=== PATIENT | male | born 1990 | race Caucasian/White ===

== ENCOUNTER → 2016-08-16 | Outpatient (CLI) | payer OTHER ==
--- NOTE | 2016-08-16 18:10 | DX ---
Cervical spine, 2 views History: Follow up fusion. Comparison: Cervical spine of March 29, 2016. Findings: Alignment is normal. ACDF is again noted at C5-C6. On the lateral, screw heads at both C5 and C6 appear to have withdrawn slightly relative to the plate compared to the previous study. One of the C6 screws is fractured, best visualized on the lateral view, most likely the right. There is no significant lucency associated with the screws to suggest loosening. Mild vertebral and uncovertebral spondylosis at C3 through C5 is stable. No fracture is identified. Impression: Interval fracture of a C6 screw, likely the right screw, with minimal withdrawal of the screw heads at C5 and C6 relative to the plate since the comparison.
== END ==
LOC: FIMAGING 17:31
PROVIDERS: ATTEND Orthopaedic Surgery Orthopaedic Surgery of the Spine
DX: Z09 Encounter for follow-up examination after completed treatment for conditions other than malignant neoplasm (principal); Z98.1 Arthrodesis status; M96.1 Postlaminectomy syndrome, not elsewhere classified

== ENCOUNTER → 2016-10-24 | Outpatient (CLI) | payer OTHER | LOC: FIMAGING 20:19 | PROVIDERS: ATTEND Orthopaedic Surgery Orthopaedic Surgery of the Spine | DX: Z09 Encounter for follow-up examination after completed treatment for conditions other than malignant neoplasm (principal); Z98.1 Arthrodesis status ==

== ENCOUNTER 2017-01-31 06:03 | Inpatient (IN) | payer OTHER ==
--- NOTE | 2017-01-30 18:29 | GHP ---
[f rep st] PREOP HISTORY AND PHYSICAL DATE OF ADMISSION: 01/31/2017 HISTORY: Patient is a 27-year-old, right-hand dominant gentleman well known to my practice. He is 11 months status post a C5-6 anterior diskectomy, fusion with instrumentation by myself for a right- sided disc herniation and right C6 radiculopathy. Unfortunately, the patient has gone on to a nonun ion at the C5-6 level. He initially was doing well after his surgery with about 90% improvement of symptoms. He has had some falls postoperatively. His improvement postoperatively gradually decreas ed. At 10 months, he was 50% better than before surgery but worsening, and now his pain is constant , 24 hours per day. He feels that the surgery is not giving him any improvement as his pain is actu ally somewhat worse. He complains of daily posterior cervical pain, right hand numbness and waking up at night. He also has recurrent headaches. The patient has had a second opinion. He does have a known right C6 anterior screw fracture. The patient denies any loss of bowel or bladder control and no loss of balance. SOCIAL HISTORY: Negative for tobacco. Negative for alcohol. Patient is a student. FAMILY HISTORY: Significant for Scheuermann disease and degenerative disc disease. PAST MEDICAL HISTORY: Bipolar disorder, attention deficit disorder, insomnia, left ulnar nerve pals y, and asthma. PAST SURGICAL HISTORY: Left ulnar nerve transposition at the elbow and two left ulnar nerve surgeri es at the wrist. He is also status post a C5-6 anterior diskectomy, fusion and instrumentation by m yself. MEDICATIONS: Adderall, Seroquel and Minipress. The patient states that with the help of his psychiatrist, he has gotten off Lamictal. PHYSICAL EXAM: GENERAL: Patient is alert and oriented x3. CARDIAC: Regular rate and rhythm witho ut detectable murmur, rub or gallop. LUNGS: Clear to auscultation. He does not have any wheezing or rhonchi. NEUROLOGIC: Cervical range of motion is markedly diminished in all 4 directions. He h as increased pain with extension. Strength of bilateral upper extremities is 5/5 throughout, with t he exception his left hand intrinsics are significantly weak due to the prior ulnar nerve injuries a nd surgery. Light touch is diminished in the right radial forearm, thumb and index finger. Spurlin g test is positive on the left. RADIOGRAPHIC STUDIES: Plain films show a broken C6 screw. There were no radial lucencies. The PEE K cages appear intact but are not incorporated. A CT scan showed a delayed union versus a nonunion. An MRI showed no degenerative disc disease or herniation above or below the prior surgery. IMPRESSION: 1. Eleven months status post C5-6 anterior diskectomy, fusion with instrumentation, for right-sided disc herniation. 2. 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 PLAN: Koko has considered all of his options and is electing to undergo surgery. Given there is no t much bone left anteriorly to remove the instrumentation and then just attempt a refusion at that l evel, one would have to go above and/or below to obtain good bone purchase. Therefore, I think it i s in his best interest to do a posterior fusion with instrumentation C5-6, using local autogenous jaguar ne graft and allogeneic bone. The patient is in agreement. Postoperatively, he will use a hard cer vical collar for approximately 6 weeks. Potential risks, benefits, and possible complications have been discussed with the patient including, but not limited to, deep dural tear with CSF leak, mening itis, nerve root injury, paralysis, partial or complete; drop arm, nonunion, junctional breakdown, n eed for further surgery; breakage or pullout of internal fixation, DVT, PE, pneumonia, stroke, heart attack, hemorrhage, blindness, and . The patient will be n.p.o. after midnight tonight. /[id number]/MODL
[~2017-01-31 06:03] MED LIST: ceFAZolin 2 GM/DEXTROSE 100 ML IV ONE
[2017-01-31] MEDS ORDERED: LR 1,000 ML IV ONE (06:12)
[2017-01-31] MEDS ORDERED: LIDOCAINE 1% 2 ML INJ ID PRN (06:12)
[2017-01-31] MEDS ORDERED: LIDOCAINE 1% 2 ML INJ ONE (06:16)
[2017-01-31] MEDS ORDERED: CITRATE DEXTROSE SOLN 500 ML BAG ONE ×2 (06:38→08:30)
[2017-01-31] MEDS ORDERED: THROMBIN (BOVINE) 20,000 UNIT VIAL TP ONE (06:38)
[2017-01-31] MEDS ORDERED: BUPIVACAINE 0.25% 30 ML SDV ONE (06:38)
[2017-01-31] MEDS ORDERED: BUPIVACAINE/EPI 0.25% 30 ML SDV ONE (06:38)
[2017-01-31] MEDS ORDERED: BACITRACIN 50,000 UNITS/10 ML SYR IRR ONE (06:39)
--- NOTE | 2017-01-31 06:54 | PDANEPAE ---
ANE History of Present Illness 27 year old male with failed fusion. ANE Past Medical History Past Medical History: No ER visits for RAD. No recent inhaler use.RAD triggered by URI. - Cardiovascular History Hx Hypertension: No Hx Arrhythmias: No Hx Chest Pain: No Hx Coronary Artery / Peripheral Vascular Disease: No Hx CHF / Valvular Disease: No Hx Palpitations: No - Pulmonary History Hx COPD: No Hx Asthma/Reactive Airway Disease: Yes Hx Recent Upper Respiratory Infection: No Hx Oxygen in Use at Home: No - Neurologic History Hx Cerebrovascular Accident: No Hx Seizures: No Hx Dementia: No - Endocrine History Hx Diabetes: No - Renal History Hx Renal Disorders: No - Liver History Hx Hepatic Disorders: No - Neurological & Psychiatric Hx Hx Neurological and Psychiatric Disorders: Yes - Cancer History Hx Cancer: No - Congenital Disorder History Hx Congenital Disorders: No - GI History Hx Gastrointestinal Disorders: No - Chronic Pain History Chronic Pain: Yes (CERVICAL) ANE Review of Systems Review of Systems: No URI x2 weeks. - Exercise capacity METS (RN): 4 METS - Systems Cardiac: Reports: no symptoms Respiratory: Reports: no symptoms ANE Patient History - Allergies Allergies/Adverse Reactions: acetaminophen [From Percocet] Allergy (Verified 03/02/16 14:26) Vomiting hydrocodone bitartrate [From Vicodin] Allergy (Verified 03/02/16 14:26) Vomiting hydromorphone Allergy (Verified 03/02/16 14:26) Hives oxycodone HCl [From Percocet] Allergy (Verified 03/02/16 14:26) Vomiting - Home Medications Home Medications: Dextroamphetamine/Amphetamine [Adderall 30 mg Tablet] 30 mg PO DAILY16 03/02/16 [Last Taken 01/30/17] Dextroamphetamine/Amphetamine [Adderall Xr 30 mg Capsule] 30 mg PO DAILY [Last Taken 01/30/17] Diazepam [Valium 5 MG (*)] 5 mg PO BID 03/02/16 [Last Taken 01/30/17] Montelukast Sodium [Singulair 10 mg (*)] 10 mg PO DAILY 03/02/16 [Last Taken ] QUEtiapine FUMARATE [Seroquel 100 mg (*)] 150 mg PO HS 03/02/16 [Last Taken ] Minipress HS 01/26/17 [Last Taken 01/30/17] - NPO status NPO Since - Liquids (Date): 01/31/17 NPO Since - Liquids (Time): 02:00 NPO Since - Solids (Date): 01/30/17 NPO Since - Solids (Time): 23:00 - Anes Hx Anes Hx: no prior problems - Smoking Hx Smoking Status: Former smoker (quit more than 1 year ago) Marijuana use: No - Alcohol Use Alcohol Use: None - Family Anes Hx Family Anes Hx: neg - N/A Family Hx Anesthesia Complications: NONE ANE Labs/Vital Signs - Vital Signs Blood Pressure: 122/76 Heart Rate: 91 Respiratory Rate: 14 O2 Sat (%): 97 Height: 172.72 cm Weight: 70.307 kg ANE Physical Exam - Airway Neck exam: decreased ROM Mallampati Score: Class 2 Mouth exam: normal dental/mouth exam - Pulmonary Pulmonary: clear to auscultation - Cardiovascular Cardiovascular: regular rate and rhythym - ASA Status ASA Status: II ANE Anesthesia Plan Anesthesia Plan: general endotracheal anesthesia Lines/Monitors: additional IV
[2017-01-31] MEDS ORDERED: MIDAZOLAM 2 MG/2 ML VIAL IVP ONE (07:01)
[2017-01-31] MEDS ORDERED: ALBUTEROL 3 ML DEYVIAL IH ONE (07:01)
[2017-01-31] MEDS ORDERED: REMIFENTANIL HCL 1 MG VIAL ONE (07:11)
[2017-01-31] MEDS ORDERED: morphINE *ANESTHESIA ONLY* 10 MG/ML VIAL ONE (07:11)
--- NOTE | 2017-01-31 07:11 | PDHPUP ---
History & Physical Update H&P update statement: This history and physical update is based on an assessment of the patient which was completed after admission or registration (within 24 hours), but prior to the surgery/procedure. H&P update: H&P reviewed & patient examined, no change in patient's condition since H&P completed
[2017-01-31] MEDS ORDERED: LIDOCAINE 2% 5 ML SDV ONE (07:12)
[2017-01-31] MEDS ORDERED: ROCURONIUM 50 MG/5 ML VIAL ONE (07:12)
[2017-01-31] MEDS ORDERED: PROPOFOL/EMULSION 500 MG/50 ML BOTTLE IV ONE ×2 (07:12→07:20)
[2017-01-31] MEDS ORDERED: KETAMINE 100 MG/10 ML SYR ONE (07:12)
[2017-01-31] MEDS ORDERED: DIAZEPAM 10 MG/2 ML SYR ONE ×2 (07:19→11:27)
[2017-01-31] MEDS ORDERED: ZOLPIDEM TARTRATE 5 MG TAB PO PRN (07:21)
[2017-01-31] MEDS ORDERED: BISACODYL 10 MG SUPP PR PRN (07:21)
[2017-01-31] MEDS ORDERED: LACTULOSE 20 GM/30 ML UDCUP PO PRN (07:21)
[2017-01-31] MEDS ORDERED: POLYETHYLENE GLYCOL 3350 17 GM PKT PO PRN (07:21)
[2017-01-31] MEDS ORDERED: MAGNESIUM HYDROXIDE 30 ML UDCUP PO PRN (07:21)
[2017-01-31] MEDS ORDERED: ONDANSETRON 4 MG/2 ML VIAL IVP PRN (07:21)
[2017-01-31] MEDS ORDERED: DEXMEDETOMIDINE HCL 400 MCG in NS 100 ML IV SCH (07:30)
[2017-01-31] MEDS ORDERED: DEXAMETHASONE 4 MG/ML VIAL ONE (08:38)
[2017-01-31] MEDS ORDERED: ALBUMIN 5% 250 ML BOTTLE IV ONE (09:40)
[2017-01-31] MEDS ORDERED: ALBUTEROL 3 ML DEYVIAL IH PRN (10:08)
[2017-01-31] MEDS ORDERED: ACETAMINOPHEN 500 MG TAB PO PRN (10:08)
[2017-01-31] MEDS ORDERED: NALOXONE HCL 0.4 MG/ML INJ IVP PRN (10:08)
[2017-01-31] MEDS ORDERED: LR 500 ML IV PRN (10:08)
[2017-01-31] MEDS ORDERED: PROMETHAZINE HCL 25 MG/ML INJ IVP PRN (10:08)
[2017-01-31] MEDS ORDERED: ONDANSETRON 4 MG/2 ML VIAL ONE (10:10)
[2017-01-31] MEDS ORDERED: DIAZEPAM 10 MG TAB PO PRN (10:34)
--- NOTE | 2017-01-31 10:40 | POSTOPPROG ---
Post Op Note Date of Operation: 01/31/17 Surgeon: Maranda Bowers Multiple Drill Operator: Mariia Ramos SA Anesthesiologist: MD Azra Anesthesia: GET(General Endotracheal) Pre-op Diagnosis: C5-6 non union Post-op Diagnosis: same Indication: painful nonunion C5-6 Procedure: C5-6 post fusion/ bone graft/instrumentation Findings: mobile non union C5-6 Inf/Abcess present in the surg proc area at time of surgery?: No Depth: Deep Incisional (Fascial) EBL: 170 cc Complications: none. No changes in neuromonitoring; including SSEPs, EMGs, and MEPs. Drains: Isra Benjamin
[2017-01-31] MEDS ORDERED: PROMETHAZINE HCL 25 MG/ML INJ ONE (10:56)
[2017-01-31] MEDS: FAMOTIDINE 20 MG TAB PO SCH ×2 (11:23→20:47)
[2017-01-31] MEDS: morphINE SR 15 MG TAB PO SCH ×2 (11:24→20:46)
[2017-01-31] MEDS: SENNOSIDES/DOCUSATE SODIUM TAB PO SCH ×2 (11:25→20:46)
[2017-01-31] MEDS: DIAZEPAM 10 MG/2 ML SYR IVP PRN ×2 (11:35→12:59)
[2017-01-31] MEDS: NS 1,000 ML IV SCH (13:01)
--- NOTE | 2017-01-31 13:21 | POSTANESTH ---
Post Anesthetic Evaluation Cardiovascular Status: Normal, Stable Respiratory Status: Normal, Stable Level of Consciousness/Mental Status: Can Participate in Eval, Mildly Sleepy, Arousable Pain Control: Inadeq, Add Tx Required Nausea/Vomiting Control: Adequate, Prn Tx Ordered Complications Possibly Related to Anesthesia: None Noted
[2017-01-31] MEDS: ACETAMINOPHEN/CODEINE 300/30MG TAB PO PRN ×3 (14:21→22:47)
[2017-01-31] MEDS: METHOCARBAMOL 750 MG TAB PO PRN ×2 (14:22→18:56)
[2017-01-31] MEDS: ADDERALL 10 MG TAB PO SCH (14:27)
[2017-01-31] MEDS ORDERED: NON-FORMULARY NEW DRUG (Dextroamphetamine/Amphetamine [Adderall 30 Mg Tablet] 30 MG) PO SCH (16:00)
[2017-01-31] MEDS: ONDANSETRON DISINTEGRATING 4 MG TAB PO PRN (18:36)
[2017-01-31] MEDS: diphenhydrAMINE 25 MG CAP PO PRN (18:55)
[2017-01-31] MEDS: DIAZEPAM 5 MG TAB PO PRN (20:46)
[2017-01-31] MEDS: PRAZOSIN HCL 1 MG CAP PO SCH (20:47)
[2017-01-31] MEDS: QUEtiapine FUMARATE 100 MG TAB PO SCH (20:47)
[2017-02-01] MEDS: ACETAMINOPHEN/CODEINE 300/30MG TAB PO PRN (04:56)
--- NOTE | 2017-02-01 08:33 | GOP ---
[f rep st] OPERATIVE REPORT DATE OF OPERATION: SURGEON: Maranda Concepcion MD BARNWORKER GROOM: Nabeel Ramos SA. ANESTHESIA: Dr. Charline Cuevas, general endotracheal intubation. PREOPERATIVE DIAGNOSIS: 1. Nonunion at C5-6 one year status post C5-6 anterior diskectomy, fusion with instrumentation. 2. Chronic worsening neck pain due to nonunion, C5-6. POSTOPERATIVE DIAGNOSIS: 1. Nonunion at C5-6 one year status post C5-6 anterior diskectomy, fusion with instrumentation. 2. Chronic worsening neck pain due to nonunion, C5-6. PROCEDURE PERFORMED: 1. Placement of Martin tongs, C5-C6 posterior instrumentation with Spinal Elements Tracy system. 2. C5-6 posterior arthrodesis with local autogenous bone graft, allogeneic bone graft, demineralized bone matrix, and bone morphogenic protein. FINDINGS: Obvious hypermobility and nonunion at C5-6 in the facet joints and the interspinous ligament. ESTIMATED BLOOD LOSS: 170 cc. INDICATIONS: The patient is a pleasant 27-year-old gentleman, who is almost 1 year status post a C5-6 diskectomy, decompression, and fusion with instrumentation by myself for a right-sided disk herniation and right C6 radiculopathy. Postoperatively, he initially did quite well; however, over the past several months, he has had gradual worsening of neck pain and some intermittent upper extremity symptoms. He was found to have a nonunion and a fracture of his right C6 anterior screw. He has tried nonoperative treatment including physical therapy, pain medication, massage therapy. Nonetheless, on CT scan, the bone graft has not incorporated and there was a clear-cut nonunion with breakage of the internal fixation. The patient has elected to undergo further surgery to attempt a solid fusion at C5-6. No guarantees were given in regard to surgical outcome. Potential risks, benefits, and possible complications have been thoroughly discussed including, but not limited to, dural tear with CSF leak, meningitis, nerve root injury, partial or complete paralysis, infection, persistent nonunion, junctional breakdown, DVT, PE, pneumonia, stroke, heart attack, hemorrhage, blindness, and . The patient' s questions were answered thoroughly preoperatively, and there were no guarantees given in regard to surgical outcome. DESCRIPTION OF PROCEDURE: After obtaining both written and verbal consent from the patient, he was brought to the operating room where he underwent a general anesthetic. Martin radiolucent tongs were placed at the level of the equator and tightened down per the recommendation of the manpower development advisor. The patient was then rolled to the prone position on chest rolls. The Martin head tongs were attached to the table and the patient was placed in neutral to mild extension. A lateral fluoroscopic x-ray was obtained for localization. The posterior aspect of the cervical spine was shaven, and prepped and prepped in the normal sterile fashion. A time-out was performed for the entire operating room team, confirming the patient's name, date of , and planned procedure, as well as antibiotics given and allergies to medications. A midline longitudinal posterior incision was made from approximately C4-C7. The incision was brought down through skin and subcutaneous tissues, and to the overlying ligamentum nuchae. Paraspinal muscles were stripped in a subperiosteal fashion down to the spinous processes. An intraoperative x-ray confirmed localization of the C5 spinous process. Self-retaining retractors were placed and then the dissection was carried out further laterally to fully expose the lamina and the lateral masses of C5 and C6, and the spinous processes of C5, C6, and C7. The soft tissue of the C5-6 facet joint was removed with a micropituitary. The lateral border of the lateral masses was clearly identified. Using basic anatomic landmarks of the lateral masses, a remotely piloted vehicle controller hole using a 3 mm drill was created just 1 mm medial to the midline of the lateral mass of C5. Then using a drill bit from the Spinal Elements [place] system, the right C5 lateral mass screw site was drilled to 12 mm. A depth gauge and a ball-tip probe were used to palpate, and there was good bone circumferentially around the entire depth. A 3.5 x 14 mm lateral mass screw was then placed in the right C5 with excellent purchase. Then, the exact same was performed on the right at C6 with good purchase. The right C5 screw stimulated and was clear to 10 milliamps. In the right C6 screw, there was a response at 10 milliamps, which is within the acceptable range. Then, the exact same was performed on the left at C5 and C6 using 3.5 x 14 mm lateral mass screws, also with good purchase, and both were clear at 10 milliamps. An AP and a lateral fluoroscopic view showed good position of internal fixation at C5 and C6. Prior to the placement of the rods, a Aldo was used to attach to the C5 spinous process. This was then moved proximally and distally, and there was obvious gross motion at the C5-6 level, confirming a nonunion. This motion was at the facet joints as well as the interspinous space at C5-6. Then, a 30 mm long titanium isaac by Spinal Lukkinus, was placed into the screw heads on the right and a 30 mm isaac, which was precontoured and precut, was placed in the screw heads on the left. Four locking caps were then placed in the screw heads, and then a counter-torque and torque wrench were used to tighten them down to 30-inch pounds. There were no changes in spinal cord monitoring which included somatosensory-evoked potentials, motor-evoked potentials, and EMGs. These were all being done to increase safety of the surgical procedure. Another AP and a lateral fluoroscopic view showed good position of internal fixation at C5-6 posteriorly. Then, at this time, a 3 mm round bur was used to decorticate the facet joint at C5-6 bilaterally, and a 5 mm round bur was used to decorticate the laminae of C5 and C6, and the spinous processes back to good , bleeding bone to accept bone graft. Some of the spinous process that had been removed at C5-6 was cleaned of its soft tissue attachments and used as autogenous bone graft and packed in the facet joints. Then, a size small, bone morphogenic protein was prepared and also packed within the facet joints. This was then augmented with crushed cancellous allograft mixed with demineralized bone matrix along the lamina and interspinous space at C5-6. Hemostasis was obtained. A 10-flat, EUGENIA drain was placed deep to the fascial layer on the right. It was sewn into the skin with a 2-0 nylon. The deep fascial layer was then closed using a #1 Vicryl, 0 Vicryl, and skin elvin. Approximately 20 cc of 0.25% Marcaine with epinephrine was infiltrated into the subcutaneous tissues for postoperative pain control. A sterile dressing was applied. A [place] J hard cervical collar was placed for increased stability. The patient was then rolled to the supine position and the Martin tongs were then removed. There was no evidence of brisk bleeding from the sites. Blanco catheter was removed. Patient was extubated in the operating room, and brought to the recovery room in satisfactory condition. COMPLICATIONS: None. IMPLANTS: Spinal Elements Tracy system at C5-C6. There were no changes in spinal cord monitoring including somatosensory-evoked potentials, motor-evoked potentials, and EMGs. POSTOPERATIVE PLAN: Close neurologic observation, close airway observation, PT , OT, and pain control. The patient will also avoid anti-inflammatories until a solid fusion is obtained. /[id number]/MODL MTDD
[2017-02-01] MEDS: SENNOSIDES/DOCUSATE SODIUM TAB PO SCH ×2 (08:50→21:14)
[2017-02-01] MEDS: DIAZEPAM 10 MG/2 ML SYR IVP PRN (08:50)
[2017-02-01] MEDS: FAMOTIDINE 20 MG TAB PO SCH ×2 (08:50→21:13)
[2017-02-01] MEDS: ONDANSETRON DISINTEGRATING 4 MG TAB PO PRN (09:50)
[2017-02-01] MEDS: diphenhydrAMINE 25 MG CAP PO PRN ×2 (09:53→21:15)
--- NOTE | 2017-02-01 12:33 | SOAPPROG ---
SOAP Progress Note Assessment/Plan: Assessment: Plan: 02/01/17 12:31 post op day 1, s/p C5-6 post fusion/instrumentation for non union. Pt having difficulty with pain control and nausea/vomitting. Subjective: Pt complains of post cervical pain. No arm pain or numbness. Objective: Vital Signs Temp Pulse Resp BP Pulse Ox 37.0 C 112 H 12 132/75 H 94 02/01/17 11:12 02/01/17 11:12 02/01/17 11:12 02/01/17 11:12 02/01/17 11:12 01/31/17 02/01/17 02/02/17 05:59 05:59 05:59 Intake Total 1875 Output Total 1845 820 Balance 30 -820 C spine drain functioning properly. BUE strength unchanged. Pt drowsy but responds appropriately. ICD10 Worksheet Patient Problems: Problems Problem Status Onset Fibrous non-union Acute - ICD10 Problem Qualifiers (1) Fibrous non-union
[2017-02-01] MEDS: PROMETHAZINE HCL 25 MG/ML INJ IVP PRN (14:06)
[2017-02-01] MEDS: MONTELUKAST SODIUM 10 MG TAB PO SCH (14:19)
[2017-02-01] MEDS: AMPHETAMINE PO SCH (14:19)
[2017-02-01] MEDS: DEXTROAMPHETAMINE PO SCH (14:19)
[2017-02-01] MEDS: morphINE SR 15 MG TAB PO SCH (14:22)
[2017-02-01] MEDS: DIAZEPAM 5 MG TAB PO PRN (14:41)
[2017-02-01] MEDS: ADDERALL 10 MG TAB PO SCH (17:51)
[2017-02-01] MEDS: QUEtiapine FUMARATE 100 MG TAB PO SCH (21:13)
[2017-02-01] MEDS: PRAZOSIN HCL 1 MG CAP PO SCH (21:15)
[2017-02-01] MEDS: morphINE SR 30 MG TAB PO SCH (21:15)
[2017-02-02] MEDS: ACETAMINOPHEN/CODEINE 300/30MG TAB PO PRN ×3 (05:19→23:23)
[2017-02-02 07:55] VITALS: RESP 16
[2017-02-02] MEDS: DEXTROAMPHETAMINE PO SCH (09:43)
[2017-02-02] MEDS: AMPHETAMINE PO SCH (09:43)
[2017-02-02] MEDS: FAMOTIDINE 20 MG TAB PO SCH ×2 (09:44→21:15)
[2017-02-02] MEDS: SENNOSIDES/DOCUSATE SODIUM TAB PO SCH ×2 (09:44→21:17)
[2017-02-02] MEDS: morphINE SR 30 MG TAB PO SCH ×2 (09:44→21:15)
[2017-02-02] MEDS: MONTELUKAST SODIUM 10 MG TAB PO SCH (09:44)
[2017-02-02] MEDS: DIAZEPAM 5 MG TAB PO PRN ×2 (09:44→19:51)
[2017-02-02] MEDS: METHOCARBAMOL 750 MG TAB PO PRN (12:26)
[2017-02-02] MEDS: ADDERALL 10 MG TAB PO SCH (15:25)
--- NOTE | 2017-02-02 15:25 | SOAPPROG ---
SOAP Progress Note Assessment/Plan: Assessment: Plan: 02/01/17 12:31 post op day 1, s/p C5-6 post fusion/instrumentation for non union. Pt having difficulty with pain control and nausea/vomitting. 02/02/17 15:22 post op day 2 s/p C5-6 post fusion/instru for non-union. Pt doing better today. Pain better controlled. Pt still concerned about potential vomitting. Plan: cont PT and OT. Soft liquid diet. Anticipate d/c to home tomorrow. Subjective: Pt states he has no arm pain or numbness. Pain better controlled. Can get out of bed and to bathroom on his own. Objective: Vital Signs Temp Pulse Resp BP Pulse Ox 36.9 C 102 H 16 121/82 H 92 02/02/17 12:29 02/02/17 12:29 02/02/17 12:29 02/02/17 12:29 02/02/17 12:29 02/01/17 02/02/17 02/03/17 05:59 05:59 05:59 Intake Total 1875 250 Output Total 1845 840 75 Balance 30 -590 -75 Posterior cervical wound clean and dry. No signs of infection. EUGENIA drain removed without difficulty. BUE motor and neuro exam unchanged. No Sheridan's syndrome. ICD10 Worksheet Patient Problems: Problems Problem Status Onset Fibrous non-union Acute - ICD10 Problem Qualifiers (1) Fibrous non-union
[2017-02-02] MEDS: PRAZOSIN HCL 1 MG CAP PO SCH (21:16)
[2017-02-02] MEDS: QUEtiapine FUMARATE 100 MG TAB PO SCH (21:16)
[2017-02-03] MEDS: ACETAMINOPHEN/CODEINE 300/30MG TAB PO PRN ×3 (04:09→17:19)
[2017-02-03] MEDS: DIAZEPAM 5 MG TAB PO PRN ×2 (04:13→15:45)
[2017-02-03] MEDS: diphenhydrAMINE 25 MG CAP PO PRN ×2 (04:14→08:46)
[2017-02-03] MEDS: morphINE SR 30 MG TAB PO SCH (08:45)
[2017-02-03] MEDS: SENNOSIDES/DOCUSATE SODIUM TAB PO SCH (08:45)
[2017-02-03] MEDS: PROMETHAZINE HCL 25 MG/ML INJ IVP PRN (08:46)
[2017-02-03] MEDS: FAMOTIDINE 20 MG TAB PO SCH (08:46)
[2017-02-03] MEDS ORDERED: Dextroamphetamine/Amphetamine [Adderall Xr 30 Mg Capsule] 30 MG PO SCH (09:00)
[2017-02-03] MEDS ORDERED: PNEUMOCOCCAL 0.5ML VACCINE VIAL IM ONE (09:47)
[2017-02-03 11:37] VITALS: O2SAT 90
[2017-02-03] MEDS: NS 1,000 ML IV SCH (11:48)
[2017-02-03] MEDS: MONTELUKAST SODIUM 10 MG TAB PO SCH (11:57)
--- NOTE | 2017-02-03 13:52 | SOAPPROG ---
SOAP Progress Note Assessment/Plan: Assessment: Plan: 02/01/17 12:31 post op day 1, s/p C5-6 post fusion/instrumentation for non union. Pt having difficulty with pain control and nausea/vomitting. 02/02/17 15:22 post op day 2 s/p C5-6 post fusion/instru for non-union. Pt doing better today. Pain better controlled. Pt still concerned about potential vomitting. Plan: cont PT and OT. Soft liquid diet. Anticipate d/c to home tomorrow. 02/03/17 13:50 post op day 3. Pt doing better. Still some concern over potential nausea. No emesis. Discharged from PT and OT. Ready for discharge. Subjective: Pt states pain is a 4. Mild difficulty getting urine going. Objective: Vital Signs Temp Pulse Resp BP Pulse Ox 37.6 C 111 H 16 120/68 90 L 02/03/17 11:36 02/03/17 11:36 02/03/17 11:36 02/03/17 11:36 02/03/17 11:36 02/02/17 02/03/17 02/04/17 05:59 05:59 05:59 Intake Total 250 1567 Output Total 840 75 Balance -590 1492 Posterior cervical wound clean and dry. No sign of infection. No change in neurovascular exam. Pt ambulating independently. ICD10 Worksheet Patient Problems: Problems Problem Status Onset Fibrous non-union Acute - ICD10 Problem Qualifiers (1) Fibrous non-union
--- NOTE | 2017-02-03 14:32 | GDS ---
[f rep st] DISCHARGE SUMMARY HOSPITAL COURSE: The patient is a pleasant 27-year-old gentleman well known to my practice. He is almost 1 year status post a C5-6 diskectomy fusion with instrumentation anteriorly for a disk hernia tion on the right. Initially, postoperatively, the patient did well, but then his symptoms graduall y returned and he began having significant pain. A CT scan showed a nonunion of the bone graft, and there was also breakage of one of the C6 screws. Due to the nonunion, patient sought a second opin ion, and then ultimately decided to undergo further surgery. My recommendation was a C5-6 posterior fusion with instrumentation. On the day of admission, patient underwent a general anesthetic. He then underwent placement of Martin tongs, and a C5-C6 posterior fusion with instrumentation using autogenous bone graft from the spinous processes, demineralized bone matrix, crushed cancellous bone graft, and bone morphogenic protein for bone stimulation. He was kept on IV antibiotics. There we re no changes in spinal cord monitoring during the surgery. A drain was placed deep to the fascial layer. Postoperatively, the patient was kept on IV antibiotics until his drain was removed on posto perative day #2. Patient initially had difficulty with pain control, but ultimately settled in on M S Contin 30 mg 1 p.o. q.12 hours, Valium 10 mg 1 p.o. q.8 hours p.r.n., Tylenol No. 3 one to two robbie ry 4 hours p.r.n. pain. Patient did have significant pain response the morning after surgery, and d ue to numerous narcotics that were given both orally and IV, he had nausea and vomiting. This also worsened his pain. He was placed on a soft liquid diet. He is being advanced to a regular diet thi s afternoon. The drain had been removed in its entirety without difficulty. The wound showed no si gns of infection. The father was shown how to do a dressing change of the posterior cervical wound. Patient was seen in both PT and OT and became independent in ambulation and activities of daily cindy ng. He took a shower on postoperative day 2. Neurologically, there were no changes in his upper extremities, and patient denied any upper extremi ty pain, tingling, or numbness. DISPOSITION: Patient is doing reasonably well and is being discharged home in satisfactory conditio n. DISCHARGE MEDICATIONS: He will be on MS Contin 30 mg 1 p.o. q.12 hours, Tylenol No. 3 one to two ev jose 4 hours p.r.n. breakthrough pain, Valium 10 mg 1 every 8 hours p.r.n. muscle spasms, Keflex 500 mg 1 p.o. q.i.d. x3 days, and he already had that prescription ahead of time from my office. The pa dima was also given a prescription for Zofran 4 mg 1 p.o. q.6 hours p.r.n. nausea. DISCHARGE INSTRUCTIONS: Patient has a follow-up appointment in my office approximately 2 weeks afte r the surgery and knows to call my office immediately or go to the nearest emergency room if he is c oncerned about any potential complications. Family and patient understand his restrictions and dres sing change and what to look for with regard to any complications and know to call my office immedia tely if they have any concerns. /[id number]/MODL
[2017-02-03 15:58] VITALS: BP 121/58; PULSE 116; TEMP 99.3
[2017-02-03] MEDS: ADDERALL 10 MG TAB PO SCH (17:37)
== END 2017-02-03 17:38 | disposition home or self-care (01) | DRG 472 ==
LOC: F3N 06:03
PROVIDERS: ADMIT Orthopaedic Surgery Orthopaedic Surgery of the Spine; ATTEND Orthopaedic Surgery Orthopaedic Surgery of the Spine
DX: M96.0 Pseudarthrosis after fusion or arthrodesis (principal); T84.216A Breakdown (mechanical) of internal fixation device of vertebrae, initial encounter; F31.9 Bipolar disorder, unspecified; F98.8 Other specified behavioral and emotional disorders with onset usually occurring in childhood and adolescence; G47.00 Insomnia, unspecified
CPT/HCPCS: 97116-GP; 97161-GP; 97166-GO; 97535-GO; C1713; C1762; J0690; J1100; J1200; J2250; J2405; J2550; J2704; J7060; P9041

== ENCOUNTER → 2017-10-18 | Outpatient (CLI) | payer OTHER | LOC: CIMAGING 14:17 | PROVIDERS: ATTEND Neurological Surgery | DX: M47.812 Spondylosis without myelopathy or radiculopathy, cervical region (principal); M47.813 Spondylosis without myelopathy or radiculopathy, cervicothoracic region; M47.814 Spondylosis without myelopathy or radiculopathy, thoracic region; M48.02 Spinal stenosis, cervical region; M48.03 Spinal stenosis, cervicothoracic region; M48.04 Spinal stenosis, thoracic region | CPT/HCPCS: 72125-PO ==